=== PATIENT | male | born 2000 | race Caucasian/White ===

== ENCOUNTER 2022-12-16 13:06 | Outpatient (CLI) | payer BC, MEDICAID, SELFPAY ==
--- NOTE | ~2022-12-16 | MR_ITS ---
EXAMINATION: MR shoulder RT w con DATE: 12/16/2022 15:24 INDICATION: Acute pain of right shoulder. TECHNIQUE: Magnetic resonance imaging (MRI) of the right shoulder was performed without intravenous c ontrast after intra-articular injection of contrast (MR arthrogram). COMPARISON: None. FINDINGS: Coracoacromial arch: The acromion undersurface is curved in morphology (type II). There is mild osteoarthritis of the acro mioclavicular joint. There is mild subacromial/subdeltoid bursitis. Rotator cuff: In the posterior supraspinatus tendon, there is an articular-sided partial-thickness tear measuring 4 mm anterior to posterior by 11 mm proximal to distal by 20% thickness that fills with contrast. Ther e is mild infraspinatus tendinopathy. Teres minor tendon is normal. Subscapularis tendon is normal. Biceps tendon and glenoid labrum: Biceps tendon is in bicipital groove. Intra-articular biceps tendon is normal. The glenoid labrum is normal. Fluid: The glenohumeral joint is well distended by contrast. Bones/cartilage: Glenoid cartilage is normal. Humeral cartilage is normal. IMPRESSION: 1. Partial-thickness articular sided tear of posterior supraspinatus tendon. 2. Mild acromioclavicular joint osteoarthritis. 3. Mild subacromial/subdeltoid bursitis. Reviewed, dictated and finalized at location A. [employer]ING [employer] OPERATOR
--- NOTE | ~2022-12-16 | XR_ITS ---
EXAMINATION: XR fl inj shoulder RT - MR/CT DATE: 12/16/2022 14:26 INDICATION: Acute right shoulder pain. No prior surgery or dislocation. TECHNIQUE: A time-out was performed to verify the patient's name, date of , and procedure to b e performed. The procedure including the risks, benefits, and alternatives was discussed with the pat ient. Risks discussed included bleeding and infection. The patient understood the risks and agreed to proceed. The skin overlying the right glenohumeral joint was prepped and draped in usual sterile fas hion. Anesthetic was administered with 1% lidocaine subcutaneously. A 22 G needle was advanced unde r fluoroscopic guidance into the joint. Subsequently, injectate consisting of 12 mL of 1:200 Multiha nce, 1:4 1% lidocaine, and 1:4 Omnipaque 240 was instilled. The needle was removed and the entry sit e was cleaned and dressed. There were no immediate complications. Fluoroscopy exposure time was 0.1 minutes. The total number of images was 4. FINDINGS: Real-time fluoroscopy demonstrates the needle and contrast in the right glenohumeral joint. IMPRESSION: 1. Successful right glenohumeral joint injection of contrast for subsequent MR arthrography. Reviewed, dictated and finalized at location A. F OF SERVICE
== END 2022-12-16 13:07 | disposition home or self-care (01) ==
LOC: ANHIMG 13:21
PROVIDERS: Visit Provider Orthopaedic Surgery
DX: M19.011 Primary osteoarthritis, right shoulder (principal); M75.51 Bursitis of right shoulder
CPT/HCPCS: 23350; 73222; 77002; A9577; Q9966